=== PATIENT | male | born 2000 | race American Indian/Alaskan Native ===

== ENCOUNTER 2021-02-25 08:23 | Emergency (ER) | payer SELFPAY ==
--- NOTE | 2021-02-25 09:19 | Emergency Department Report ---
ED General Adult HPI - General Stated complaint: RT ANKLE INJURY Time Seen by Provider: 02/25/21 09:12 - History of Present Illness Initial comments: 20-year-old -[place] male patient presents with complaints of right ankle pain after an injury 3 days ago. He rates his current pain as a 7/10 in severity and states it worsens with movement and to walk. He denies trying any OTC medications for his symptoms. Patient also denies any numbness/tingling or difficulty moving the ankle. -: Sudden - Related Data Previous Rx's Medication Instructions Recorded Last Taken Type Naproxen 500 mg PO BID #20 tablet 02/25/21 Unknown Rx ED Review of Systems ROS: Stated complaint: RT ANKLE INJURY Other details as noted in HPI Constitutional: denies: malaise Musculoskeletal: joint swelling, arthralgia Neurological: denies: numbness, paresthesias, abnormal gait ED Past Medical Hx - Medications Home Medications: Home Medications Medication Instructions Recorded Confirmed Last Taken Type Naproxen 500 mg PO BID #20 tablet 02/25/21 Unknown Rx ED Physical Exam - General General appearance: alert, in no apparent distress - Head Head exam: Present: atraumatic, normocephalic - Eye Eye exam: Present: normal appearance - Respiratory Respiratory exam: Absent: respiratory distress - Cardiovascular Cardiovascular Exam: Present: regular rate - Extremities Exam Extremities exam: Present: full ROM, other (Tenderness to palpation noted to right medial ankle without obvious swelling, bruising, or redness; normal pedal pulses noted; normal sensation is noted) - Neurological Exam Neurological exam: Present: alert, oriented X3 - Psychiatric Psychiatric exam: Present: normal affect, normal mood - Skin Skin exam: Present: warm, dry, intact, normal color. Absent: rash ED Course Vital Signs 02/25/21 09:11 Temperature 98 F Pulse Rate 62 Respiratory 20 Rate Blood Pressure 124/68 O2 Sat by Pulse 100 Oximetry ED Medical Decision Making - Radiology Data Radiology results: report reviewed XR ankle 3+V RT INDICATION / CLINICAL INFORMATION: medial ankle pain after injury. COMPARISON: None available. FINDINGS: BONES/JOINT(S): No acute fracture or subluxation. No significant degenerative changes. SOFT TISSUES: No significant abnormality. ADDITIONAL FINDINGS: None. - Medical Decision Making 20-year-old -[place] male patient presents with complaints of right ankle pain after an injury 3 days ago. He rates his current pain as a 7/10 in severity and states it worsens with movement and to walk. He denies trying any OTC medications for his symptoms. Patient also denies any numbness/tingling or difficulty moving the ankle. XR is negative for any acute bony abnormalities. Will treat for ankle sprain with rice method and NSAIDs. Recommend follow-up with orthopedics as needed. Discussed signs and symptoms that should prompt immediate return to the emergency department in detail with patient who verbalized understanding. Critical care attestation.: If time is entered above; I have spent that time in minutes in the direct care of this critically ill patient, excluding procedure time. ED Disposition Clinical Impression: Sprain of other ligament of right ankle, initial encounter Disposition: TO HOME OR SELFCARE Is pt being admited?: No Condition: Stable Instructions: Ankle Sprain Prescriptions: Naproxen 500 mg PO BID #20 tablet Referrals: PRIMARY CAREMD [Primary Care Provider] - 3-5 Days ARIE NIELSON MD [Staff Physician] - 3-5 Days Forms: Work/School Release Form(ED)
[2021-02-25 09:37] VITALS: BP 124/68
--- NOTE | 2021-02-25 11:53 | XRay Report ---
XR ankle 3+V RT INDICATION / CLINICAL INFORMATION: medial ankle pain after injury. COMPARISON: None available. FINDINGS: BONES/JOINT(S): No acute fracture or subluxation. No significant degenerative changes. SOFT TISSUES: No significant abnormality. ADDITIONAL FINDINGS: None. Signer Name: Tristen Lazo MD Signed: 02/25/2021 11:48 AM Workstation Name: [email or web address]
== END 2021-02-25 09:15 | disposition home or self-care (01) ==
LOC: ED 08:23
DX: S93.491A Sprain of other ligament of right ankle, initial encounter (principal); Z79.899 Other long term (current) drug therapy; X58.XXXA Exposure to other specified factors, initial encounter; Y93.89 Activity, other specified; Y92.89 Other specified places as the place of occurrence of the external cause; Y99.8 Other external cause status